=== PATIENT | female | born 2000 | race Caucasian/White ===

== ENCOUNTER 2023-03-27 23:02 | Emergency (ER) | payer MEDICAID ==
[~2023-03-27] VITALS: Ht 152.4 cm; Wt 54.4 kg
[2023-03-27 23:42] VITALS: BP_SYST 105; PULSE 116; RESP 18; TEMP 98.5; O2SAT 99
[2023-03-28 00:56] VITALS: BP_SYST 131; PULSE 92; RESP 20; TEMP 97.7; O2SAT 97
== END 2023-03-28 00:41 | disposition home or self-care (01) ==
LOC: SED 23:02
DX: J06.9 Acute upper respiratory infection, unspecified (principal); R06.02 Shortness of breath; F41.9 Anxiety disorder, unspecified; Z79.899 Other long term (current) drug therapy
CPT/HCPCS: 99282